=== PATIENT | male | born 1945 | race African-American/Black ===

== ENCOUNTER 2021-07-11 06:01 | Inpatient (IN) ==
[~2021-07-11 06:01] MED LIST: *HR* Etomidate 20 MG/10 ML AMPUL IVP ONE; *HR* FentaNYL (PF) 1,000 MCG/20 ML VIAL ONE; *HR* Midazolam HCl 5 MG/5 ML VIAL IVP ONE; *HR* Norepinephrine 4 MG/4 ML VIAL IVC ONE; *HR* Rocuronium Bromide 50 MG/5 ML VIAL ONE; Calcium Gluconate 1,000 MG/10 ML VIAL ONE; DOBUTamine 1,000 MG/250 ML BAG ONE; NiCARdipine 2.5 MG/10 ML Syringe IVPB ONE; Protamine Sulfate 250 MG/25 ML VIAL IVP ONE; Tranexamic Acid 1,000 MG/10 ML VIAL ONE; niCARdipine 20 MG/200 ML MLS IVC ONE
[2021-07-11] MEDS ORDERED: CeFAZolin Syr 2,000MG/20 ML 2,000 MG/20 ML SYRINGE IVPB ONE ×2 (06:26→12:25)
[2021-07-11] MEDS ORDERED: Chlorhexidine Rinse 15 ML MOUTHWASH MM STA (06:41)
[2021-07-11] MEDS ORDERED: Papaverine 60 MG/2 ML VIAL IVP ONE (06:42)
[2021-07-11] MEDS ORDERED: Buckersberg's Blood Cardioplegia PF ONE (07:00)
[2021-07-11] MEDS ORDERED: del Nido Cardioplegia Solution PF ONE ×2 (07:00)
[2021-07-11] MEDS ORDERED: Norepinephrine 4 MG in 0.9 % Sodium Chloride 250 ML IVC PRN (07:00)
[2021-07-11] MEDS ORDERED: Heparin 15,000 UNIT in 0.9 % Sodium Chloride 500 ML IV ONE (07:00)
[2021-07-11 07:26] LABS: ABG Base Excess 1 mEq/L (-2 to 3); ABG Chloride 100 mEq/L (98-107); ABG Glucose 139 mg/dL (60-95); ABG HCO3 28 mEq/L (21-27); ABG Ionized Calcium 1.15 mmol/L (1.15-1.35); ABG Oxygen Saturation 100 % (95-98); ABG PCO2 51 mmHg (35-45); ABG PH 7.34 pH Units (7.32-7.45); ABG PO2 440 mmHg (85-104); ABG TCO2 29 mEq/L (20-26)
[2021-07-11] MEDS ORDERED: *HR* Atropine Sulfate 1 MG/ML VIAL ONE (08:50)
[2021-07-11 09:51] LABS: ABG Base Excess -1 mEq/L (-2 to 3); ABG Chloride 103 mEq/L (98-107); ABG Glucose 129 mg/dL (60-95); ABG HCO3 23 mEq/L (21-27); ABG Oxygen Saturation 100 % (95-98); ABG PCO2 33 mmHg (35-45); ABG PH 7.45 pH Units (7.32-7.45); ABG PO2 204 mmHg (85-104); ABG TCO2 24 mEq/L (20-26)
[2021-07-11 10:04] LABS: ABG Base Excess 1 mEq/L (-2 to 3); ABG Chloride 98 mEq/L (98-107); ABG Glucose 126 mg/dL (60-95); ABG HCO3 24 mEq/L (21-27); ABG Ionized Calcium 0.89 mmol/L (1.15-1.35); ABG Oxygen Saturation 100 % (95-98); ABG PCO2 32 mmHg (35-45); ABG PH 7.49 pH Units (7.32-7.45); ABG PO2 593 mmHg (85-104); ABG TCO2 25 mEq/L (20-26)
[2021-07-11] MEDS ORDERED: *HR* Dextrose 50 % in Water (Syg) 50 ML SYRINGE IVP PRN (10:15)
[2021-07-11] MEDS ORDERED: Naloxone 0.4 MG/ML INJ IVP PRN (10:15)
[2021-07-11] MEDS ORDERED: Potassium Chloride 40 MEQ/200 ML BAG IVPB PRN (10:15)
[2021-07-11] MEDS ORDERED: Insulin Regular, Human 100 UNIT/ML IV PRN (10:15)
[2021-07-11] MEDS ORDERED: Acetaminophen 325 MG TABLET PO PRN (10:15)
[2021-07-11 10:38] LABS: ABG Base Excess 3 mEq/L (-2 to 3); ABG Chloride 99 mEq/L (98-107); ABG Glucose 130 mg/dL (60-95); ABG HCO3 26 mEq/L (21-27); ABG Ionized Calcium 0.96 mmol/L (1.15-1.35); ABG Oxygen Saturation 100 % (95-98); ABG PCO2 36 mmHg (35-45); ABG PH 7.48 pH Units (7.32-7.45); ABG PO2 583 mmHg (85-104); ABG TCO2 28 mEq/L (20-26)
[2021-07-11] MEDS ORDERED: Albumin Human 5% 25.0 GM/500 ML IV.SOLN ONE (10:45)
[2021-07-11 11:24] LABS: ABG Base Excess 3 mEq/L (-2 to 3); ABG Chloride 99 mEq/L (98-107); ABG Glucose 125 mg/dL (60-95); ABG HCO3 28 mEq/L (21-27); ABG Ionized Calcium 0.99 mmol/L (1.15-1.35); ABG Oxygen Saturation 100 % (95-98); ABG PCO2 46 mmHg (35-45); ABG PH 7.39 pH Units (7.32-7.45); ABG PO2 562 mmHg (85-104); ABG TCO2 29 mEq/L (20-26)
[2021-07-11 11:58] LABS: ABG Base Excess 1 mEq/L (-2 to 3); ABG Chloride 100 mEq/L (98-107); ABG Glucose 139 mg/dL (60-95); ABG HCO3 27 mEq/L (21-27); ABG Ionized Calcium 1.18 mmol/L (1.15-1.35); ABG Oxygen Saturation 100 % (95-98); ABG PCO2 49 mmHg (35-45); ABG PH 7.35 pH Units (7.32-7.45); ABG PO2 529 mmHg (85-104); ABG TCO2 29 mEq/L (20-26)
[2021-07-11] MEDS ORDERED: *HR* Heparin 10,000 UNIT/10 ML VIAL IR ONE (12:00)
[2021-07-11] MEDS ORDERED: Lidocaine 2% Syringe 100 MG/5 ML IVP ONE (12:00)
[2021-07-11] MEDS ORDERED: Mannitol 25% vial 12.5 GM/50 ML VIAL IVPB ONE (12:00)
[2021-07-11] MEDS ORDERED: *HR* Phenylephrine 10 MG/ML VIAL IVC ONE (12:00)
[2021-07-11] MEDS ORDERED: *HR* Magnesium Sulfate 2 GM/50 ML PIGGYBACK IVPB ONE (12:00)
[2021-07-11] MEDS ORDERED: Albumin Human 25% 25 GM/100 ML IV.SOLN IVPB ONE (12:00)
[2021-07-11] MEDS ORDERED: Tranexamic Acid 1,000 MG/10 ML VIAL IR ONE (12:00)
[2021-07-11] MEDS ORDERED: Calcium Gluconate 1gm/50mL 1 GM/50 ML BAG IVPB PRN (12:41)
[2021-07-11 12:53] LABS: ABG Base Excess 0 mEq/L (-2 to 3); ABG Chloride 101 mEq/L (98-107); ABG Glucose 126 mg/dL (60-95); ABG HCO3 24 mEq/L (21-27); ABG Ionized Calcium 1.37 mmol/L (1.15-1.35); ABG Oxygen Saturation 100 % (95-98); ABG PCO2 36 mmHg (35-45); ABG PH 7.43 pH Units (7.32-7.45); ABG PO2 178 mmHg (85-104); ABG TCO2 25 mEq/L (20-26)
[2021-07-11] MEDS: Albumin Human 5% 12.5 GM/250 ML IV.SOLN IVPB PRN ×6 (13:50→19:17)
[2021-07-11 13:56] LABS: ABG Base Excess 0 mEq/L (-2 to 3); ABG HCO3 25 mEq/L (21-27); ABG Oxygen Saturation 99 % (95-98); ABG PCO2 38 mmHg (35-45); ABG PH 7.42 pH Units (7.32-7.45); ABG PO2 151 mmHg (85-104); ABG TCO2 26 mEq/L (20-26); Blood Gas Modality ASSIST CONTROL; Blood Gas VT 500 cc
[2021-07-11 14:09] LABS: Basophils % 0.2 %; Eosinophils # 0.1 K/mcL (0.0-0.6); Eosinophils % 1.7 %; Hematocrit 24.7 % (37.5-50.1); Hemoglobin 8.4 g/dL (12.9-16.9); Immature Granulocytes % 0.4 % (0-4); Lymphocytes # 0.9 K/mcL (0.6-4.6); Mean Corpuscular Hemoglobin 31.7 pg (28.0-33.3); Mean Corpuscular Volume 93.2 fL (83.0-100.0); Monocytes # 0.3 K/mcL (0.0-1.3); Monocytes % 3.7 %; Neutrophils # 6.7 K/mcL (1.6-8.9); Platelet Count 100 K/mcL (140-400); Red Blood Count 2.65 M/mcL (4.19-5.50); Red Cell Distribution Width 13.7 % (11.5-14.5)
[2021-07-11 14:16] LABS: INR 1.2
[2021-07-11 14:19] LABS: Activated Partial Thrombo Time 28.9 Seconds (26.0-36.0)
[2021-07-11] MEDS: *HR* OxyCODONE/APAP 5/325 TABLET PO PRN ×2 (14:25→20:16)
[2021-07-11] MEDS: *HR* FentaNYL (PF) 100 MCG/2 ML VIAL IVP PRN ×3 (14:25→22:29)
[2021-07-11 14:28] LABS: Calcium 9.5 mg/dL (8.6-10.3); Magnesium 3.2 mg/dL (1.6-2.6); Potassium 4.4 mEq/L (3.5-5.1)
[2021-07-11] MEDS: 0.9 % Sodium Chloride 500 ML IVC SCH (14:28)
[2021-07-11] MEDS: DOBUTamine 1,000 MG/250 ML BAG IVC SCH (14:29)
[2021-07-11] MEDS: Nitroprusside 50 MG in D5% in Water 250 ML IVC SCH ×2 (14:29→16:03)
[2021-07-11] MEDS: Norepinephrine 4 MG/254 ML IV.SOLN IVC SCH (14:29)
[2021-07-11 15:18] LABS: ABG Base Excess 1 mEq/L (-2 to 3); ABG HCO3 26 mEq/L (21-27); ABG Oxygen Saturation 99 % (95-98); ABG PCO2 46 mmHg (35-45); ABG PH 7.37 pH Units (7.32-7.45); ABG PO2 149 mmHg (85-104); ABG TCO2 28 mEq/L (20-26); Blood Gas Modality ASSIST CONTROL; Blood Gas VT 500 cc
[2021-07-11] MEDS: Pantoprazole 40 MG VIAL IVP SCH (15:45)
[2021-07-11] MEDS: CeFAZolin 2 GM/120 ML BAG IVPB SCH (15:45)
[2021-07-11] MEDS ORDERED: Aspirin 81 MG TAB.CHEW PO ONE (18:00)
[2021-07-11] MEDS: Chlorhexidine Rinse 15 ML MOUTHWASH MM SCH (20:16)
[2021-07-11 20:28] LABS: ABG Base Excess -1 mEq/L (-2 to 3); ABG HCO3 24 mEq/L (21-27); ABG Oxygen Saturation 99 % (95-98); ABG PCO2 38 mmHg (35-45); ABG PH 7.41 pH Units (7.32-7.45); ABG PO2 148 mmHg (85-104); ABG TCO2 25 mEq/L (20-26); Blood Gas VT 500 cc
[2021-07-11 21:04] LABS: ABG Base Excess -2 mEq/L (-2 to 3); ABG HCO3 24 mEq/L (21-27); ABG Oxygen Saturation 98 % (95-98); ABG PCO2 43 mmHg (35-45); ABG PH 7.35 pH Units (7.32-7.45); ABG PO2 112 mmHg (85-104); ABG TCO2 25 mEq/L (20-26); Blood Gas Modality CPAP/PS; Blood Gas Pressure Support 8 cm H2O
[2021-07-11] MEDS: Ondansetron 4 MG/2 ML VIAL IVP PRN (21:56)
[2021-07-11 22:16] LABS: ABG Base Excess -1 mEq/L (-2 to 3); ABG HCO3 24 mEq/L (21-27); ABG Oxygen Saturation 98 % (95-98); ABG PCO2 46 mmHg (35-45); ABG PH 7.33 pH Units (7.32-7.45); ABG PO2 117 mmHg (85-104); ABG TCO2 26 mEq/L (20-26)
[2021-07-12] MEDS: 0.9 % Sodium Chloride 500 ML IVC SCH ×2 (00:16→20:01)
[2021-07-12] MEDS: Norepinephrine 4 MG/254 ML IV.SOLN IVC SCH ×2 (00:17→19:59)
[2021-07-12] MEDS: *HR* OxyCODONE/APAP 5/325 TABLET PO PRN (00:21)
[2021-07-12] MEDS: CeFAZolin 2 GM/120 ML BAG IVPB SCH ×4 (00:22→23:06)
[2021-07-12] MEDS: *HR* FentaNYL (PF) 100 MCG/2 ML VIAL IVP PRN ×2 (02:36→08:50)
[2021-07-12 03:59] LABS: INR 1.1; Prothrombin Time 12.4 Seconds (9.4-12.1)
[2021-07-12 04:01] LABS: Activated Partial Thrombo Time 28.1 Seconds (26.0-36.0)
[2021-07-12 04:09] LABS: Calcium 9.3 mg/dL (8.6-10.3)
[2021-07-12 04:55] LABS: Basophils % 0.1 %; Immature Granulocytes % 0.3 % (0-4); Mean Platelet Volume 10.1 fL (9.4-12.4); Platelet Count 115 K/mcL (140-400)
[2021-07-12 04:57] LABS: Hematocrit 17.5 % (37.5-50.1); Lymphocytes # 0.5 K/mcL (0.6-4.6); Lymphocytes % 6.8 %; Mean Corpuscular Hemoglobin 30.3 pg (28.0-33.3); Mean Corpuscular Volume 94.6 fL (83.0-100.0); Monocytes # 0.5 K/mcL (0.0-1.3); Monocytes % 6.4 %; Neutrophils # 6.1 K/mcL (1.6-8.9); Red Blood Count 1.85 M/mcL (4.19-5.50); Red Cell Distribution Width 13.8 % (11.5-14.5); Segmented Neutrophils % 86.4 %; White Blood Count 7.1 K/mcL (4.3-11.1)
[2021-07-12 05:04] LABS: Hemoglobin 5.6 g/dL (12.9-16.9)
[2021-07-12 05:55] LABS: Hypochromasia Present (Not Present); Platelet Estimate Slight Decrease (Normal)
[2021-07-12] MEDS ORDERED: *HR* Enoxaparin 40 MG/0.4 ML SYRINGE SQ SCH (06:00)
[2021-07-12] MEDS: Ondansetron 4 MG/2 ML VIAL IVP PRN ×2 (07:19→16:53)
[2021-07-12] MEDS ORDERED: 0.9 % Sodium Chloride 250 ML IVC PRN (07:20)
[2021-07-12] MEDS ORDERED: 0.9 % Sodium Chloride 2,000 ML PRIME SCH (07:30)
[2021-07-12] MEDS ORDERED: *HR* Heparin 10,000 UNIT/10 ML VIAL IV PRN (07:57)
[2021-07-12] MEDS ORDERED: Ethyl Chloride Spray Bottle (104 SPRAY/BOTTLE) TP PRN (10:07)
[2021-07-12 11:51] LABS: Hepatitis B Surface Antibody 724.69 mIU/mL
[2021-07-12 12:02] LABS: Hepatitis B Surface Antigen Nonreactive (Nonreactive)
[2021-07-12] MEDS ORDERED: *HR* LORazepam 2 MG/ML VIAL ONE (12:29)
[2021-07-12] MEDS ORDERED: *HR* LORazepam 2 MG/ML VIAL IVP PRN (12:32)
[2021-07-12] MEDS ORDERED: *HR* LORazepam 2 MG/ML VIAL IVP ONE (12:33)
[2021-07-12] MEDS: Pantoprazole 40 MG VIAL IVP SCH (13:23)
[2021-07-12] MEDS: Chlorhexidine Rinse 15 ML MOUTHWASH MM SCH ×2 (13:23→20:00)
[2021-07-12] MEDS: Aspirin 81 MG TAB.CHEW PO SCH (13:27)
[2021-07-12] MEDS: Calcium Gluconate 1gm/50mL 1 GM/50 ML BAG IVPB SCH ×2 (13:28→14:44)
[2021-07-12 13:43] LABS: Calcium 8.5 mg/dL (8.6-10.3); Magnesium 2.1 mg/dL (1.6-2.6); Potassium 3.7 mEq/L (3.5-5.1)
[2021-07-12] MEDS ORDERED: D5% in Water 1,000 ML IVC PRN (14:16)
[2021-07-12] MEDS ORDERED: Dextrose Gel 15 GM/37.5 ML TUBE PO PRN ×2 (14:16)
[2021-07-12] MEDS ORDERED: *HR* Dextrose 50 % in Water (Syg) 50 ML SYRINGE IVP PRN (14:16)
[2021-07-12] MEDS: DOBUTamine 1,000 MG/250 ML BAG IVC SCH (14:21)
[2021-07-12] MEDS ORDERED: *HR* Heparin 5,000 UNIT/ML VIAL SQ SCH (18:00)
[2021-07-12] MEDS: Insulin LISPRO 300 UNITS/3 ML VIAL SUBQ SCH ×2 (18:01→20:26)
[2021-07-12 18:38] LABS: Hematocrit 24.2 % (37.5-50.1); Hemoglobin 8.2 g/dL (12.9-16.9)
[2021-07-12] MEDS: Gabapentin 300 MG CAPSULE PO SCH (21:07)
[2021-07-13 04:36] LABS: Basophils % 0.3 %; Eosinophils % 0.2 %; Hematocrit 22.6 % (37.5-50.1); Hemoglobin 7.7 g/dL (12.9-16.9); Immature Granulocytes % 0.3 % (0-4); Lymphocytes # 0.9 K/mcL (0.6-4.6); Mean Corpuscular HGB Conc 34.1 g/dL (31.6-35.5); Mean Corpuscular Hemoglobin 30.7 pg (28.0-33.3); Mean Platelet Volume 10.9 fL (9.4-12.4); Monocytes # 0.8 K/mcL (0.0-1.3); Monocytes % 7.6 %; Neutrophils # 8.5 K/mcL (1.6-8.9); Platelet Count 124 K/mcL (140-400); Red Blood Count 2.51 M/mcL (4.19-5.50); Red Cell Distribution Width 16.2 % (11.5-14.5); Segmented Neutrophils % 82.6 %; White Blood Count 10.3 K/mcL (4.3-11.1)
[2021-07-13 05:50] LABS: Calcium 8.9 mg/dL (8.6-10.3); Magnesium 2.6 mg/dL (1.6-2.6); Potassium 4.7 mEq/L (3.5-5.1)
[2021-07-13] MEDS: Gabapentin 300 MG CAPSULE PO SCH ×3 (08:21→20:45)
[2021-07-13] MEDS: Chlorhexidine Rinse 15 ML MOUTHWASH MM SCH ×2 (08:21→20:44)
[2021-07-13] MEDS: Pantoprazole 40 MG VIAL IVP SCH (08:21)
[2021-07-13] MEDS: Aspirin 81 MG TAB.CHEW PO SCH (08:21)
[2021-07-13] MEDS: Insulin LISPRO 300 UNITS/3 ML VIAL SUBQ SCH ×4 (08:22→20:42)
[2021-07-13] MEDS: CeFAZolin 2 GM/120 ML BAG IVPB SCH (08:33)
[2021-07-13] MEDS: DOBUTamine 1,000 MG/250 ML BAG IVC SCH (09:12)
[2021-07-13] MEDS: Nitroprusside 50 MG in D5% in Water 250 ML IVC SCH (10:49)
[2021-07-13] MEDS: Norepinephrine 4 MG/254 ML IV.SOLN IVC SCH (14:32)
[2021-07-13] MEDS ORDERED: Gabapentin 300 MG CAPSULE PO SCH (21:00)
[2021-07-14 02:57] LABS: Basophils % 0.2 %; Eosinophils # 0.1 K/mcL (0.0-0.6); Eosinophils % 0.5 %; Hematocrit 23.3 % (37.5-50.1); Hemoglobin 7.6 g/dL (12.9-16.9); Immature Granulocytes % 0.4 % (0-4); Lymphocytes # 1.2 K/mcL (0.6-4.6); Lymphocytes % 11.3 %; Mean Corpuscular HGB Conc 32.6 g/dL (31.6-35.5); Mean Corpuscular Hemoglobin 29.5 pg (28.0-33.3); Mean Corpuscular Volume 90.3 fL (83.0-100.0); Mean Platelet Volume 10.4 fL (9.4-12.4); Monocytes # 0.7 K/mcL (0.0-1.3); Monocytes % 6.6 %; Neutrophils # 8.9 K/mcL (1.6-8.9); Platelet Count 145 K/mcL (140-400); Red Blood Count 2.58 M/mcL (4.19-5.50); Red Cell Distribution Width 15.4 % (11.5-14.5)
[2021-07-14 03:14] LABS: Calcium 8.5 mg/dL (8.6-10.3); Magnesium 2.5 mg/dL (1.6-2.6); Potassium 4.5 mEq/L (3.5-5.1)
[2021-07-14] MEDS: Norepinephrine 4 MG/254 ML IV.SOLN IVC SCH (05:26)
[2021-07-14] MEDS ORDERED: 0.9 % Sodium Chloride 250 ML IVC PRN ×2 (07:13→08:31)
[2021-07-14] MEDS ORDERED: 0.9 % Sodium Chloride 2,000 ML PRIME SCH ×2 (07:15→07:30)
[2021-07-14] MEDS ORDERED: D5% in Water 1,000 ML IVC PRN (07:30)
[2021-07-14] MEDS ORDERED: *HR* LORazepam 2 MG/ML VIAL IVP PRN (07:30)
[2021-07-14] MEDS ORDERED: *HR* Heparin 10,000 UNIT/10 ML VIAL IV PRN (07:30)
[2021-07-14] MEDS ORDERED: *HR* Dextrose 50 % in Water (Syg) 50 ML SYRINGE IVP PRN (07:30)
[2021-07-14] MEDS ORDERED: Ethyl Chloride Spray Bottle (104 SPRAY/BOTTLE) TP PRN ×2 (07:30→08:31)
[2021-07-14] MEDS ORDERED: Naloxone 0.4 MG/ML INJ IVP PRN (07:30)
[2021-07-14] MEDS ORDERED: Acetaminophen 325 MG TABLET PO PRN (07:30)
[2021-07-14] MEDS ORDERED: Dextrose Gel 15 GM/37.5 ML TUBE PO PRN ×2 (07:30)
[2021-07-14] MEDS: Aspirin 81 MG TAB.CHEW PO SCH (08:06)
[2021-07-14] MEDS: Insulin LISPRO 300 UNITS/3 ML VIAL SUBQ SCH ×5 (08:17→20:34)
[2021-07-14] MEDS ORDERED: Chlorhexidine Rinse 15 ML MOUTHWASH MM SCH (09:00)
[2021-07-14] MEDS ORDERED: Pantoprazole 40 MG VIAL IVP SCH (09:00)
[2021-07-14] MEDS ORDERED: Isovue-370 500 ML BOTTLE IVP ONE (21:14)
[2021-07-14] MEDS ORDERED: Perflutren Lipid Microsphere 1.3 ML in 0.9 % Sodium Chloride 8.7 ML IVP PRN (22:53)
[2021-07-14 23:44] LABS: Alanine Aminotransferase < 3 Units/L (7-52); Albumin 3.2 g/dL (3.5-5.7); Albumin/Globulin Ratio 1.2 (1.1-2.2); Alkaline Phosphatase 57 Units/L (34-104); Aspartate Amino Transferase 34 Units/L (13-39); BUN/Creatinine Ratio 8 (6-26); Bilirubin,Total 0.4 mg/dL (0.3-1.0); Blood Urea Nitrogen 36 mg/dL (8-23); Calcium 8.1 mg/dL (8.6-10.3); Carbon Dioxide 26 mEq/L (23-29); Chloride 100 mEq/L (98-107); Globulin 2.7 g/dL (2.4-3.5); Glucose 118 mg/dL (70-105); Magnesium 2.3 mg/dL (1.6-2.6); Osmolality,Calculated 289 (280-300); Phosphorous 3.8 mg/dL (2.7-4.5); Potassium 4.8 mEq/L (3.5-5.1); Sodium 135 mEq/L (136-145); Total Protein 5.9 g/dL (6.4-8.9); eGFR For African Americans 15 (> 60); eGFR For Non-African Americans 12 (> 60)
[2021-07-15 04:05] LABS: Basophils % 0.2 %; Eosinophils # 0.1 K/mcL (0.0-0.6); Eosinophils % 0.9 %; Hematocrit 21.2 % (37.5-50.1); Hemoglobin 6.9 g/dL (12.9-16.9); Immature Granulocytes % 0.5 % (0-4); Lymphocytes # 0.9 K/mcL (0.6-4.6); Lymphocytes % 9.3 %; Mean Corpuscular HGB Conc 32.5 g/dL (31.6-35.5); Mean Corpuscular Hemoglobin 29.5 pg (28.0-33.3); Mean Corpuscular Volume 90.6 fL (83.0-100.0); Mean Platelet Volume 10.3 fL (9.4-12.4); Monocytes # 0.8 K/mcL (0.0-1.3); Neutrophils # 7.9 K/mcL (1.6-8.9); Platelet Count 174 K/mcL (140-400); Red Blood Count 2.34 M/mcL (4.19-5.50); Red Cell Distribution Width 15.1 % (11.5-14.5); Segmented Neutrophils % 81.1 %; White Blood Count 9.8 K/mcL (4.3-11.1)
[2021-07-15 04:20] LABS: Calcium 7.8 mg/dL (8.6-10.3); INR 1.1; Magnesium 2.3 mg/dL (1.6-2.6); Prothrombin Time 12.1 Seconds (9.4-12.1)
[2021-07-15 04:22] LABS: Chol/HDL Ratio 2.9 (0-4.9)
[2021-07-15 04:29] LABS: Troponin I 4.39 ng/mL (< 0.04)
[2021-07-15] MEDS ORDERED: 0.9 % Sodium Chloride 250 ML IVC SCH (04:45)
[2021-07-15 04:48] LABS: Estimated Average Glucose 131 mg/dl; Hemoglobin A1C 6.2 %
[2021-07-15] MEDS ORDERED: 0.9 % Sodium Chloride 250 ML ONE (06:12)
[2021-07-15] MEDS: Aspirin 81 MG TAB.CHEW PO SCH (09:00)
[2021-07-15] MEDS: Insulin LISPRO 300 UNITS/3 ML VIAL SUBQ SCH ×4 (09:02→21:08)
[2021-07-15] MEDS: Iron Sucrose Complex 250 MG in 0.9 % Sodium Chloride 250 ML IVPB SCH (10:47)
[2021-07-15 17:19] LABS: Hematocrit 28.2 % (37.5-50.1)
[2021-07-15 17:22] LABS: Hemoglobin 9.5 g/dL (12.9-16.9)
[2021-07-16 01:43] LABS: Basophils % 0.4 %; Eosinophils # 0.2 K/mcL (0.0-0.6); Eosinophils % 1.5 %; Hematocrit 28.6 % (37.5-50.1); Hemoglobin 9.4 g/dL (12.9-16.9); Immature Granulocytes % 0.4 % (0-4); Lymphocytes # 1.2 K/mcL (0.6-4.6); Lymphocytes % 10.8 %; Mean Corpuscular HGB Conc 32.9 g/dL (31.6-35.5); Mean Corpuscular Hemoglobin 30.5 pg (28.0-33.3); Mean Corpuscular Volume 92.9 fL (83.0-100.0); Mean Platelet Volume 9.6 fL (9.4-12.4); Monocytes % 9.6 %; Neutrophils # 8.4 K/mcL (1.6-8.9); Platelet Count 201 K/mcL (140-400); Red Blood Count 3.08 M/mcL (4.19-5.50); Red Cell Distribution Width 14.9 % (11.5-14.5); Segmented Neutrophils % 77.3 %; White Blood Count 10.9 K/mcL (4.3-11.1)
[2021-07-16 02:03] LABS: Calcium 8.3 mg/dL (8.6-10.3); Magnesium 2.4 mg/dL (1.6-2.6); Potassium 4.1 mEq/L (3.5-5.1)
[2021-07-16] MEDS: Aspirin 81 MG TAB.CHEW PO SCH (07:46)
[2021-07-16] MEDS: Insulin LISPRO 300 UNITS/3 ML VIAL SUBQ SCH ×4 (07:48→20:09)
[2021-07-16] MEDS: Iron Sucrose Complex 250 MG in 0.9 % Sodium Chloride 250 ML IVPB SCH (08:00)
[2021-07-17 06:13] LABS: Basophils % 0.3 %; Eosinophils # 0.3 K/mcL (0.0-0.6); Eosinophils % 2.5 %; Hematocrit 27.4 % (37.5-50.1); Immature Granulocytes % 0.3 % (0-4); Lymphocytes # 1.1 K/mcL (0.6-4.6); Lymphocytes % 11.4 %; Mean Corpuscular HGB Conc 32.8 g/dL (31.6-35.5); Mean Corpuscular Hemoglobin 30.2 pg (28.0-33.3); Mean Corpuscular Volume 91.9 fL (83.0-100.0); Mean Platelet Volume 9.3 fL (9.4-12.4); Monocytes % 10.1 %; Neutrophils # 7.6 K/mcL (1.6-8.9); Platelet Count 252 K/mcL (140-400); Red Blood Count 2.98 M/mcL (4.19-5.50); Red Cell Distribution Width 14.9 % (11.5-14.5); Segmented Neutrophils % 75.4 %
[2021-07-17 07:29] LABS: Calcium 8.4 mg/dL (8.6-10.3); Magnesium 2.5 mg/dL (1.6-2.6); Potassium 4.3 mEq/L (3.5-5.1)
[2021-07-17] MEDS: Insulin LISPRO 300 UNITS/3 ML VIAL SUBQ SCH ×4 (07:44→20:09)
[2021-07-17] MEDS: Aspirin 81 MG TAB.CHEW PO SCH (07:44)
[2021-07-17] MEDS ORDERED: *HR* Heparin 10,000 UNIT/10 ML VIAL IV PRN (09:13)
[2021-07-17] MEDS ORDERED: 0.9 % Sodium Chloride 250 ML IVC PRN (09:13)
[2021-07-17] MEDS ORDERED: *HR* Metoprolol 5 MG/5 ML VIAL IVP ONE (22:01)
[2021-07-18] MEDS: Ondansetron 4 MG/2 ML VIAL IVP PRN (04:15)
[2021-07-18 05:32] LABS: Basophils % 0.3 %; Eosinophils # 0.1 K/mcL (0.0-0.6); Eosinophils % 0.8 %; Hematocrit 28.5 % (37.5-50.1); Immature Granulocytes % 0.4 % (0-4); Lymphocytes # 0.8 K/mcL (0.6-4.6); Lymphocytes % 7.8 %; Mean Corpuscular HGB Conc 31.6 g/dL (31.6-35.5); Mean Corpuscular Hemoglobin 29.2 pg (28.0-33.3); Mean Corpuscular Volume 92.5 fL (83.0-100.0); Mean Platelet Volume 9.3 fL (9.4-12.4); Monocytes # 1.1 K/mcL (0.0-1.3); Neutrophils # 7.8 K/mcL (1.6-8.9); Platelet Count 297 K/mcL (140-400); Red Blood Count 3.08 M/mcL (4.19-5.50); Red Cell Distribution Width 14.6 % (11.5-14.5); Segmented Neutrophils % 79.7 %; White Blood Count 9.8 K/mcL (4.3-11.1)
[2021-07-18 05:50] LABS: Calcium 8.6 mg/dL (8.6-10.3); Magnesium 2.2 mg/dL (1.6-2.6)
[2021-07-18] MEDS: Insulin LISPRO 300 UNITS/3 ML VIAL SUBQ SCH ×4 (07:52→20:12)
[2021-07-18] MEDS: Aspirin 81 MG TAB.CHEW PO SCH (07:52)
[2021-07-18] MEDS: Simethicone 80 MG TAB.CHEW PO PRN ×2 (15:35→23:11)
[2021-07-19 03:23] LABS: Calcium 8.6 mg/dL (8.6-10.3); Potassium 4.1 mEq/L (3.5-5.1)
[2021-07-19] MEDS: Insulin LISPRO 300 UNITS/3 ML VIAL SUBQ SCH ×4 (07:59→19:55)
[2021-07-19] MEDS ORDERED: 0.9 % Sodium Chloride 250 ML IVC PRN (08:10)
[2021-07-19] MEDS ORDERED: *HR* Heparin 10,000 UNIT/10 ML VIAL IV PRN (08:10)
[2021-07-19] MEDS: Aspirin 325 MG TABLET PO SCH (08:48)
[2021-07-19] MEDS: *HR* Amiodarone 200 MG TABLET PO SCH ×2 (11:30→19:55)
[2021-07-19] MEDS ORDERED: Lidocaine Viscous Oral Soln 15 ML SOLUTION MM PRN (13:51)
[2021-07-19] MEDS ORDERED: 0.9 % Sodium Chloride 500 ML IVC ONE (13:51)
[2021-07-19] MEDS: *HR* Midazolam HCl 5 MG/5 ML VIAL IVP PRN ×3 (14:43→14:48)
[2021-07-19] MEDS: *HR* FentaNYL (PF) 100 MCG/2 ML VIAL IVP PRN ×3 (14:43→14:48)
[2021-07-19] MEDS: amLODIPine 5 MG TABLET PO SCH (15:45)
[2021-07-19 16:55] LABS: Hematocrit 37.4 % (37.5-50.1); Mean Corpuscular HGB Conc 31.8 g/dL (31.6-35.5); Mean Corpuscular Hemoglobin 29.9 pg (28.0-33.3); Mean Platelet Volume 9.2 fL (9.4-12.4); Platelet Count 343 K/mcL (140-400); Red Blood Count 3.98 M/mcL (4.19-5.50); Red Cell Distribution Width 14.5 % (11.5-14.5); White Blood Count 11.2 K/mcL (4.3-11.1)
[2021-07-19 16:57] LABS: Hemoglobin 11.9 g/dL (12.9-16.9)
[2021-07-19] MEDS: Ondansetron 4 MG/2 ML VIAL IVP PRN (17:08)
[2021-07-19] MEDS: Simethicone 80 MG TAB.CHEW PO PRN (22:21)
[2021-07-20 01:52] LABS: Basophils # 0.1 K/mcL (0.0-0.2); Basophils % 0.5 %; Eosinophils # 0.1 K/mcL (0.0-0.6); Eosinophils % 0.6 %; Hematocrit 30.3 % (37.5-50.1); Immature Granulocytes % 0.4 % (0-4); Lymphocytes # 0.6 K/mcL (0.6-4.6); Lymphocytes % 5.9 %; Mean Corpuscular HGB Conc 32.7 g/dL (31.6-35.5); Mean Corpuscular Hemoglobin 29.6 pg (28.0-33.3); Mean Corpuscular Volume 90.4 fL (83.0-100.0); Mean Platelet Volume 9.1 fL (9.4-12.4); Monocytes # 0.8 K/mcL (0.0-1.3); Monocytes % 8.1 %; Neutrophils # 8.3 K/mcL (1.6-8.9); Platelet Count 354 K/mcL (140-400); Red Blood Count 3.35 M/mcL (4.19-5.50); Red Cell Distribution Width 14.2 % (11.5-14.5); Segmented Neutrophils % 84.5 %; White Blood Count 9.8 K/mcL (4.3-11.1)
[2021-07-20 01:59] LABS: Calcium 8.5 mg/dL (8.6-10.3); Hemoglobin 9.9 g/dL (12.9-16.9); Potassium 4.1 mEq/L (3.5-5.1)
[2021-07-20] MEDS: amLODIPine 5 MG TABLET PO SCH (08:18)
[2021-07-20] MEDS: Aspirin 325 MG TABLET PO SCH (08:19)
[2021-07-20] MEDS: *HR* Amiodarone 200 MG TABLET PO SCH (08:19)
[2021-07-20] MEDS: Insulin LISPRO 300 UNITS/3 ML VIAL SUBQ SCH (08:20)
[2021-07-20 08:55] VITALS: BP 157/69; PULSE 80; TEMP 98.4
[2021-07-20 11:42] VITALS: O2SAT 96
[2021-07-22] MEDS ORDERED: *HR* Amiodarone 200 MG TABLET PO SCH (09:00)
== END 2021-07-20 12:30 | disposition home health service (06) | DRG 235 ==
LOC: SAMDAY 06:01 → SUATTDRO 12:16 → ICNU 12:16 → 2NNU 07-13 17:24
PROVIDERS: ADMIT Thoracic Surgery (Cardiothoracic Vascular Surgery); ATTEND General Practice